=== PATIENT | female | born 1980 | race Two or more races ===

== ENCOUNTER 2021-01-12 15:12 | Inpatient (IN) | payer MEDICAID, OTHER ==
[~2021-01-12] VITALS: Ht 167.6 cm; Wt 120.3 kg
[~2021-01-12 15:12] MED LIST: ATOR20TA50 PO; BACL20TA PO; BUPR75TA4 PO; CITA-77 PO; DIVA250T4 PO; TRAM50TA2 PO; TRAZ50TA2 PO; [UNRECOGNIZED DRUG - CODE] PO
[2021-01-12] MEDS ORDERED: LORazepam 2MG/ML-1ML VIAL IV ONE (15:30)
[2021-01-12] MEDS ORDERED: ONDANSETRON HCL 4 MG/2 ML VIAL IV ONE ×2 (15:30→22:15)
[2021-01-12] MEDS ORDERED: SODIUM CHLORIDE 0.9% 500 ML IV ONE (15:30)
[2021-01-12 16:00] LABS: Basophils # (auto) 0.1 10 ^3/uL (0-0.2); Basophils % (auto) 0.5 % (0.0-2.0); Eosinophils # (auto) 0.1 10 ^3/uL (0-0.8); Eosinophils % (auto) 0.5 % (0.0-7.0); Hematocrit 44.5 % (36.0-46.0); Hemoglobin 14.6 g/dL (12.2-16.2); Lymphocytes # (auto) 2.7 10 ^3/uL (0.4-5.4); Lymphocytes % (auto) 24.6 % (10.0-50.0); Mean Corpuscular Hemoglobin 29.4 pg (28.0-32.0); Mean Corpuscular Hgb Conc. 32.8 g/dL (32.0-36.0); Mean Corpuscular Volume 89.5 fL (80.0-100.0); Monocytes # (auto) 0.7 10 ^3/uL (0-1.3); Monocytes % (auto) 6.2 % (0.0-12.0); Neutrophils # (auto) 7.6 10 ^3/uL (1.6-8.6); Neutrophils % (auto) 68.2 % (37.0-80.0); Red Blood Cells 4.98 10^6/uL (4.0-5.20); Red Cell Distribution Width 13.3 % (11.8-14.3); White Blood Cell 11.1 10^3/uL (4.4-10.8)
[2021-01-12 16:25] LABS: Anion Gap 10 (5-15); Blood Urea Nitrogen 13 mg/dL (7-18); Calcium 9.1 mg/dL (8.5-10.1); Carbon Dioxide 23 mmol/L (21-32); Chloride 105 mmol/L (98-107); Glucose 252 mg/dL (74-106); Potassium 3.6 mmol/L (3.5-5.1); Sodium 138 mmol/L (136-145)
[2021-01-12 16:27] LABS: Alanine Aminotransferase 40 U/L (13-56); Aspartate Aminotransferase 22 U/L (15-37); BUN/Creatinine Ratio 14.6; GFR African American 89 mL/min; GFR Non-African American 74 mL/min
[2021-01-12 16:32] LABS: Alkaline Phosphatase 63 U/L (45-117); Bilirubin, Total 0.6 mg/dL (0.2-1.0); Total Protein 6.7 g/dL (6.4-8.2)
[2021-01-12] MEDS ORDERED: MORPHINE SULFATE INJECTION 2 MG/ML SYRG IV ONE (22:15)
[2021-01-12] MEDS ORDERED: DEXTROSE (50%) 50ML SYRG IV PRN (22:45)
[2021-01-12] MEDS ORDERED: MORPHINE SULFATE INJECTION 2 MG/ML SYRG IV PRN (22:45)
[2021-01-12] MEDS ORDERED: HYDROcodone-ACET 5/325MG TAB PO PRN (22:45)
[2021-01-12] MEDS ORDERED: NITROGLYCERIN 0.4 MG SL TAB SL PRN (22:45)
[2021-01-12] MEDS ORDERED: ACETAMINOPHEN 325 MG TAB PO PRN (22:45)
[2021-01-12] MEDS ORDERED: DOCUSATE SOD 100 MG CAP PO PRN (22:45)
[2021-01-12 23:04] LABS: Urine Bacteria FEW /hpf (None Seen); Urine Blood Negative /uL (Negative); Urine Mucus FEW (None Seen); Urine Specific Gravity 1.036 (1.001-1.035); Urine WBC 2 /hpf (0 - 5)
[2021-01-13 01:20] VITALS: BP 119/70
[2021-01-13] MEDS: LORazepam 2MG/ML-1ML VIAL IV PRN ×2 (03:35→10:47)
[2021-01-13 05:00] VITALS: BP 123/65
[2021-01-13] MEDS ORDERED: APIX5TAB PO (05:01)
[2021-01-13] MEDS: InsuLIN REG 1unit/0.01ml Soln (100units/ml) SC SCH ×3 (06:00→17:25)
[2021-01-13] MEDS: ACCU-CHEK COMFORT CURVE STRIP VI SCH ×4 (06:04→23:36)
[2021-01-13 06:32] LABS: Basophils # (auto) 0 10 ^3/uL (0-0.2); Basophils % (auto) 0.3 % (0.0-2.0); Eosinophils # (auto) 0.1 10 ^3/uL (0-0.8); Eosinophils % (auto) 0.9 % (0.0-7.0); Hematocrit 40.5 % (36.0-46.0); Hemoglobin 13.8 g/dL (12.2-16.2); Lymphocytes # (auto) 2.9 10 ^3/uL (0.4-5.4); Lymphocytes % (auto) 30.1 % (10.0-50.0); Mean Corpuscular Hemoglobin 30.8 pg (28.0-32.0); Mean Corpuscular Volume 90.4 fL (80.0-100.0); Monocytes # (auto) 0.6 10 ^3/uL (0-1.3); Monocytes % (auto) 6.6 % (0.0-12.0); Neutrophils % (auto) 62.1 % (37.0-80.0); Nucleated Red Blood Cells % 0.1 %; Red Blood Cells 4.48 10^6/uL (4.0-5.20); Red Cell Distribution Width 13.3 % (11.8-14.3); White Blood Cell 9.7 10^3/uL (4.4-10.8)
[2021-01-13 06:52] LABS: Albumin 2.5 g/dL (3.4-5.0); Calcium 8.2 mg/dL (8.5-10.1); Potassium 3.7 mmol/L (3.5-5.1)
[2021-01-13] MEDS: SODIUM CHLOR 0.9% PF (SALINE LOCK) 10ML VIAL/SYR IV SCH ×2 (06:53→14:13)
[2021-01-13 06:55] LABS: BUN/Creatinine Ratio 17.3
[2021-01-13 06:57] LABS: Bilirubin, Total 0.4 mg/dL (0.2-1.0); Total Protein 6.1 g/dL (6.4-8.2)
[2021-01-13 07:04] LABS: Cholesterol 167 mg/dL (< 200); HDL Cholesterol 43 mg/dL (40-59); LDL Cholesterol 108 mg/dL (< 100); Triglycerides 179 mg/dL (< 150)
[2021-01-13 09:00] VITALS: BP 121/75
[2021-01-13] MEDS ORDERED: ENOXAPARIN SOD 40 MG/0.4 ML SYRINGE SC SCH (10:00)
[2021-01-13] MEDS ORDERED: ASPirin 81 mg TAB PO SCH (10:00)
[2021-01-13] MEDS: MULTIPLE VITAMIN TAB PO SCH (10:05)
[2021-01-13] MEDS: ZINC SULFATE 220mg CAP or TAB PO SCH (10:06)
[2021-01-13] MEDS: ASCORBIC ACID 500 MG TAB PO SCH ×2 (10:06→22:15)
[2021-01-13] MEDS: FAMOTIDINE (10MG/ML) 2ML VL IV SCH ×2 (10:46→22:22)
[2021-01-13] MEDS: ONDANSETRON HCL 4 MG/2 ML VIAL IV PRN ×2 (10:47→20:43)
[2021-01-13 13:00] VITALS: BP 114/57
[2021-01-13] MEDS ORDERED: CEFTRIAXONE SODIUM 2 GM in D5W 5% 50 ML IV ONE (14:45)
[2021-01-13] MEDS ORDERED: LORazepam 0.5 MG TAB PO PRN (15:30)
[2021-01-13] MEDS ORDERED: BACLOFEN 10 MG TAB PO ONE (15:30)
[2021-01-13] MEDS: SODIUM CHLORIDE 0.9% 1,000 ML IV SCH (16:52)
[2021-01-13 17:00] VITALS: BP 106/70
[2021-01-13] MEDS ORDERED: MORPHINE SULFATE INJECTION 2 MG/ML SYRG IV PRN (17:00)
[2021-01-13 22:00] VITALS: BP 122/55
[2021-01-13] MEDS ORDERED: ATORVASTATIN 20 MG TAB PO SCH (22:00)
[2021-01-13] MEDS ORDERED: InsuLIN REG 1unit/0.01ml Soln (100units/ml) SC SCH (22:00)
[2021-01-13] MEDS ORDERED: BACLOFEN 10 MG TAB PO PRN (22:00)
[2021-01-13] MEDS: APIXABAN 5 MG TAB PO SCH (22:15)
[2021-01-14] MEDS: LORazepam 2MG/ML-1ML VIAL IV PRN (01:28)
[2021-01-14 05:00] VITALS: BP 100/67
[2021-01-14 05:55] LABS: Basophils # (auto) 0 10 ^3/uL (0-0.2); Basophils % (auto) 0.2 % (0.0-2.0); Eosinophils # (auto) 0.1 10 ^3/uL (0-0.8); Eosinophils % (auto) 1.2 % (0.0-7.0); Hemoglobin 13.8 g/dL (12.2-16.2); Lymphocytes # (auto) 2.7 10 ^3/uL (0.4-5.4); Lymphocytes % (auto) 33.7 % (10.0-50.0); Mean Corpuscular Hemoglobin 30.8 pg (28.0-32.0); Mean Corpuscular Hgb Conc. 34.6 g/dL (32.0-36.0); Mean Corpuscular Volume 89.3 fL (80.0-100.0); Monocytes # (auto) 0.6 10 ^3/uL (0-1.3); Monocytes % (auto) 7.3 % (0.0-12.0); Neutrophils # (auto) 4.7 10 ^3/uL (1.6-8.6); Neutrophils % (auto) 57.6 % (37.0-80.0); Red Blood Cells 4.48 10^6/uL (4.0-5.20); White Blood Cell 8.1 10^3/uL (4.4-10.8)
[2021-01-14 06:15] LABS: INR 0.94 (0.9-1.15); Partial Thromboplastin Time 24.1 sec (23.6-33.0)
[2021-01-14 06:16] LABS: Albumin 2.5 g/dL (3.4-5.0); Anion Gap 8 (5-15); Blood Urea Nitrogen 16 mg/dL (7-18); Calcium 8.4 mg/dL (8.5-10.1); Carbon Dioxide 25 mmol/L (21-32); Chloride 103 mmol/L (98-107); Glucose 213 mg/dL (74-106); Magnesium 2.1 mg/dL (1.6-2.6); Potassium 3.8 mmol/L (3.5-5.1); Sodium 136 mmol/L (136-145)
[2021-01-14 06:20] LABS: Alanine Aminotransferase 41 U/L (13-56); Aspartate Aminotransferase 18 U/L (15-37); BUN/Creatinine Ratio 23.2; GFR African American 120 mL/min; GFR Non-African American 99 mL/min
[2021-01-14 06:24] LABS: Alkaline Phosphatase 51 U/L (45-117); Bilirubin, Total 0.3 mg/dL (0.2-1.0); Phosphorus 3.6 mg/dL (2.5-4.90); Total Protein 6.2 g/dL (6.4-8.2)
[2021-01-14] MEDS: InsuLIN REG 1unit/0.01ml Soln (100units/ml) SC SCH ×2 (06:28→11:52)
[2021-01-14] MEDS: ACCU-CHEK COMFORT CURVE STRIP VI SCH ×2 (06:29→11:30)
[2021-01-14 07:13] VITALS: BP 167/88
[2021-01-14 09:00] VITALS: BP 119/61
[2021-01-14] MEDS ORDERED: cefTRIAXone 1GM/50ML D5W 50 ML IV SCH (09:00)
[2021-01-14] MEDS: ZINC SULFATE 220mg CAP or TAB PO SCH (09:13)
[2021-01-14] MEDS: FAMOTIDINE (10MG/ML) 2ML VL IV SCH (09:13)
[2021-01-14] MEDS: ASCORBIC ACID 500 MG TAB PO SCH (09:14)
[2021-01-14] MEDS: MULTIPLE VITAMIN TAB PO SCH (09:14)
[2021-01-14] MEDS: APIXABAN 5 MG TAB PO SCH (09:14)
[2021-01-14] MEDS: SODIUM CHLORIDE 0.9% 1,000 ML IV SCH (09:15)
[2021-01-14] MEDS ORDERED: CITALOPRAM HYDROBR 20 MG TAB PO SCH (10:00)
[2021-01-14] MEDS ORDERED: ASPI1CHW15 PO (14:56)
[2021-01-14] MEDS ORDERED: METF-372 PO (14:56)
[2021-01-14] MEDS ORDERED: BACL10TA PO (14:56)
[2021-01-14] MEDS ORDERED: SITA100T7 PO (14:56)
[2021-01-14] MEDS ORDERED: DOCU100C10 PO (14:56)
[2021-01-14] MEDS ORDERED: MULTTAB99 PO (14:56)
[2021-01-14] MEDS ORDERED: CITA-77 PO (14:56)
[2021-01-14] MEDS ORDERED: APIX5TAB PO (14:56)
[2021-01-14] MEDS ORDERED: ATOR20TA50 PO (14:56)
[2021-01-14 15:19] VITALS: BP 119/61
== END 2021-01-14 18:20 | disposition home or self-care (01) | DRG 198 ==
LOC: ER 15:12 → EDBD 15:12 → TELE 22:38 → TELE-CENTR 23:47
PROVIDERS: ADMIT Nurse Practitioner Family; ATTEND Nurse Practitioner Family
DX: R07.89 Other chest pain (principal); I24.9 Acute ischemic heart disease, unspecified; E11.21 Type 2 diabetes mellitus with diabetic nephropathy; E11.40 Type 2 diabetes mellitus with diabetic neuropathy, unspecified; E88.09 Other disorders of plasma-protein metabolism, not elsewhere classified; M35.1 Other overlap syndromes; D72.829 Elevated white blood cell count, unspecified; Z20.822 Contact with and (suspected) exposure to COVID-19; E11.65 Type 2 diabetes mellitus with hyperglycemia; E66.01 Morbid (severe) obesity due to excess calories; F41.9 Anxiety disorder, unspecified; I10 Essential (primary) hypertension; G47.30 Sleep apnea, unspecified; N39.0 Urinary tract infection, site not specified; J45.909 Unspecified asthma, uncomplicated; Z68.41 Body mass index [BMI] 40.0-44.9, adult; Z82.49 Family history of ischemic heart disease and other diseases of the circulatory system; Z83.3 Family history of diabetes mellitus; Z86.711 Personal history of pulmonary embolism; Z86.718 Personal history of other venous thrombosis and embolism; Z91.041 Radiographic dye allergy status; Z90.49 Acquired absence of other specified parts of digestive tract; Z98.51 Tubal ligation status; F31.9 Bipolar disorder, unspecified; J44.9 Chronic obstructive pulmonary disease, unspecified
CPT/HCPCS: 36415; 71045; 80053; 80061; 81001; 82962; 83036; 83735; 83880; 84100; 84484; 85025; 85379; 85610; 85730; 87040; 87086; 87088; 87186; 87426; 93005; 96374; 96375; G0378; J0696; J1815; J2405; J3490; J7060

== ENCOUNTER 2021-02-20 14:27 | Emergency (ER) | payer MEDICAID ==
[~2021-02-20] VITALS: Ht 170.2 cm; Wt 117.9 kg
[~2021-02-20 14:27] MED LIST changes: +APIX5TAB PO; +ASPI1CHW15 PO; +BACL10TA PO; -BACL20TA PO; -BUPR75TA4 PO; -DIVA250T4 PO; +DOCU100C10 PO; +METF-372 PO; +MULTTAB99 PO; +SITA100T7 PO; -TRAM50TA2 PO; -TRAZ50TA2 PO; -[UNRECOGNIZED DRUG - CODE] PO
[2021-02-20 15:35] LABS: Urine Bacteria NONE SEEN /hpf (None Seen); Urine Blood Negative /uL (Negative); Urine WBC 1 /hpf (0 - 5)
[2021-02-20 16:53] LABS: Basophils # (auto) 0 10 ^3/uL (0-0.2); Basophils % (auto) 0.3 % (0.0-2.0); Eosinophils # (auto) 0.1 10 ^3/uL (0-0.8); Hematocrit 42.4 % (36.0-46.0); Hemoglobin 14.1 g/dL (12.2-16.2); Lymphocytes # (auto) 2.2 10 ^3/uL (0.4-5.4); Lymphocytes % (auto) 31.8 % (10.0-50.0); Mean Corpuscular Hgb Conc. 33.3 g/dL (32.0-36.0); Monocytes # (auto) 0.6 10 ^3/uL (0-1.3); Monocytes % (auto) 8.6 % (0.0-12.0); Neutrophils # (auto) 4.1 10 ^3/uL (1.6-8.6); Neutrophils % (auto) 58.3 % (37.0-80.0); Red Blood Cells 4.71 10^6/uL (4.0-5.20); Red Cell Distribution Width 13.1 % (11.8-14.3)
[2021-02-20 17:13] LABS: Albumin 2.7 g/dL (3.4-5.0); Calcium 8.2 mg/dL (8.5-10.1); Potassium 3.9 mmol/L (3.5-5.1)
[2021-02-20 17:15] LABS: BUN/Creatinine Ratio 17.8
[2021-02-20 17:18] LABS: Bilirubin, Total 0.4 mg/dL (0.2-1.0); Total Protein 6.6 g/dL (6.4-8.2)
[2021-02-20] MEDS ORDERED: PERCOT PO (20:26)
[2021-02-20] MEDS ORDERED: ONDA-144 PO (20:26)
[2021-02-20] MEDS ORDERED: TAM04C PO (20:26)
[2021-02-20 21:30] VITALS: BP 125/52
== END 2021-02-20 21:35 | disposition home or self-care (01) ==
LOC: ER 14:27
DX: N20.0 Calculus of kidney (principal); I10 Essential (primary) hypertension; E11.9 Type 2 diabetes mellitus without complications; E78.5 Hyperlipidemia, unspecified; Z90.49 Acquired absence of other specified parts of digestive tract; Z79.82 Long term (current) use of aspirin; Z79.899 Other long term (current) drug therapy; Z88.6 Allergy status to analgesic agent; Z88.8 Allergy status to other drugs, medicaments and biological substances; Z91.018 Allergy to other foods
CPT/HCPCS: 36415; 74176; 80053; 81001; 83690; 85025